=== PATIENT | female | born 1985 | race Caucasian/White ===

== ENCOUNTER 2017-05-28 17:43 | Emergency (ER) | payer BC, OTHER ==
[~2017-05-28] VITALS: Ht 157.5 cm; Wt 74.8 kg
== END 2017-05-28 20:34 | disposition home or self-care (01) ==
LOC: ED 17:43
DX: O20.9 Hemorrhage in early pregnancy, unspecified (principal); Z3A.15 15 weeks gestation of pregnancy; Z91.013 Allergy to seafood; Z79.899 Other long term (current) drug therapy
CPT/HCPCS: 76815; 86900; 86901; 99284

== ENCOUNTER 2017-11-23 12:41 | Inpatient (IN) | payer OTHER ==
--- OUTSIDE RECORDS SUMMARY | ~2017-11-23 | XMS | Clinical Summary ---
Demographics + + + | Address | [address] | | | [place] [address] | + + + | Home Phone | | + + + | Preferred Language | Unknown | + + + | Marital Status | | + + + | Sikh Affiliation | Unknown | + + + | Race | Unknown | + + + | Ethnic Group | Unknown | + + + Author + + + | Author | Merged With [facility] | | | and [place] | + + + | Organization | Merged With [facility] | | | and [place] | + + + | Address | Unknown | + + + | Phone | Unavailable | + + + Support + + +---------+ + | Name | Relationship | Address | Phone | + + +---------+ + | Mich Michele | ECON | Unknown | | + + +---------+ + | Joan Anand | ECON | Unknown | | + + +---------+ + Care Team Providers + +------+ + | Care Manager New Product Name | Role | Phone | + +------+ + | No Physician | PP | Unavailable | + +------+ + Allergies + + + + + + | Active Allergy | Reactions | Severity | Noted | Comments | | | | | Date | | + + + + + + | Shellfish-Derived | | | 04/18/20 | | | Products | | | 10 | | + + + + + + Current Medications No known medications Active Problems + + + | Problem | Noted Date | + + + | INGROWN TOENAIL | 01/02/2012 | + + + | MAXILLARY SINUSITIS | 09/08/2011 | + + + | SINUSITIS | 01/02/2011 | + + + | DYSFUNCTIONAL UTERINE BLEEDING | 10/17/2010 | + + + | ASTHMA | | + + + Social History + +-------+ +--------+ + | Tobacco Use | Types | Packs/Day | Years | Date | | | | | Used | | + +-------+ +--------+ + | Former Smoker | | | | Quit: 07/23/2004 | + +-------+ +--------+ + + +---+---+---+ | Smokeless Tobacco: | | | | | Never Used | | | | + +---+---+---+ + + +---------+ + | Alcohol Use | Drinks/We | oz/Week | Comments | | | ek | | | + + +---------+ + | Yes | | | Occasionally | + + +---------+ + + + + | Sex Assigned at | Date Recorded | | | | + + + | Not on file | | + + + Last Filed Vital Signs + + + + | Vital Sign | Reading | Time Taken | + + + + | Blood Pressure | 121/64 | 06/28/20161756 PST | + + + + | Pulse | 69 | 06/28/20161756 PST | + + + + | Temperature | 36.8 C (98.3 F) | 06/28/20161756 PST | + + + + | Respiratory Rate | 16 | 06/28/20161756 PST | + + + + | Oxygen Saturation | 100% | 06/28/20161756 PST | + + + + | Inhaled Oxygen | - | - | | Concentration | | | + + + + | Weight | 65.8 kg (145 lb) | 06/28/20161756 PST | + + + + | Height | 157.5 cm (5' 2") | 06/28/20161756 PST | + + + + | Body Mass Index | 26.52 | 06/28/20161756 PST | + + + + Plan of Treatment + + + + + | Health Maintenance | Due Date | Last Done | Comments | + + + + + | Vaccine: | | | | | Dtap/Tdap/Td (1 - | 6 | | | | Tdap) | | | | + + + + + | Vaccine: | | | | | Pneumococcal - | 6 | | | | (PPSV23 only) Medium | | | | | Risk (1 of 1 - | | | | | PPSV23) | | | | + + + + + | CERVICAL CANCER | | | | | SCREENING (PAP EVERY | 8 | | | | 3 YEARS - ) | | | | + + + + + | Vaccine: Influenza | | | | | (Season Ended) | 8 | | | + + + + + Results Not on filefrom Last 3 Months Insurance + +--------+ +------+ +---------+ | Payer | Benefi | Subscriber | Type | Phone | Address | | | t Plan | ID | | | | | | / | | | | | | | Group | | | | | + +--------+ +------+ +---------+ | [employer] | H[employer] | xxxxxxxxxxx | PPO | [phone] | | | ADMIN | [employer]BS | [phone] | [phone] | | | | PPO | | | | | + +--------+ +------+ +---------+ + +--------+ +--------+ + + | Guarantor Name | Accoun | Relation to | Date | Phone | Billing Address | | | t Type | Patient | of | | | | | | | | | | + +--------+ +--------+ + + | VIC MICHELE | Person | Self [birth year] Home: | [address] | | | trang/Timmy | | 1984 | [phone] [address] | | | kenneth | | [phone] | [place] [id number] | + +--------+ +--------+ + +
--- NOTE | 2017-11-24 12:05 | PR ---
[facility] [address] [place], [place] [address] Signed PP Progress Notes Datetime Report Generated by HAYDEN: 11/24/2017 12:05 SUBJECTIVE: [id number] Pain: Within normal limits Vital Signs: [id number] Vital Signs: Reviewed; Within Normal Limits EXAM: [id number] Cardiovascular: Not Done Respiratory: Not Done Abdomen/Uterus: Abnormal Lochia: Normal Vulva/Perineum: Not Done Breasts: Not Done CVA Tenderness: Not Done Extremities: Abnormal Incision: Not Applicable Progress: Abnormal Exam Comments: Fundus firm, NT @ U-1. Ext 1+ edema H/H 10.3/31.1, WBC 11.6, plat 125k IMPRESSION/PLAN/PROCEDURES: [id number] Impression: Normal progression Other Impression: Desires D/C Plan: Discharge Procedures: None Progress Notes: Doing well. She would like D/C to boarder status. Signing Physician: Christen Melendez MD Copies: ~ *Electronically Signed* 11/24/17 1205 CHRISTEN MELENDEZ MD PATIENT NAME: CHEKO MICHELE PROGRESS NOTE DATE OF : 89 PHYSICIAN: CHRISTEN MELENDEZ MD RPT #: [id number] REPORT IS CONFIDENTIAL AND NOT TO BE RELEASED WITHOUT AUTHORIZATION
== END 2017-11-24 13:00 | disposition home or self-care (01) | DRG 775 ==
LOC: FBCO 12:41 → FBC 12:50 → FBCO 11-25 13:29
PROVIDERS: ADMIT Obstetrics & Gynecology
PROC: 10E0XZZ Delivery of Products of Conception, External Approach (ICD-10-PCS; principal; 2017-11-23)
PROC: 0KQM0ZZ Repair Perineum Muscle, Open Approach (ICD-10-PCS; 2017-11-23)
DX: O42.92 Full-term premature rupture of membranes, unspecified as to length of time between rupture and onset of labor (principal); O99.824 Streptococcus B carrier state complicating childbirth; O70.1 Second degree perineal laceration during delivery; O99.214 Obesity complicating childbirth; E66.9 Obesity, unspecified; Z68.29 Body mass index [BMI] 29.0-29.9, adult; Z33.3 Pregnant state, gestational carrier; Z87.42 Personal history of other diseases of the female genital tract; Z3A.39 39 weeks gestation of pregnancy; Z37.0 Single live birth
CPT/HCPCS: 36415; 85027; J2540; J2590; J7120

== ENCOUNTER 2022-04-12 06:50 | Day surgery (SDC) | payer OTHER ==
[~2022-04-12] VITALS: Ht 157.5 cm; Wt 83.2 kg
--- NOTE | ~2022-04-12 | OR ---
[facility] [address] [place], [place] [address] [address] DATE OF OPERATION: 04/12/2022 SURGEON: Christen Melendez MD PREOPERATIVE DIAGNOSIS: Embedded intrauterine device. POSTOPERATIVE DIAGNOSIS: Embedded intrauterine device. PROCEDURES: 1. Dilation of cervix. 2. Removal of embedded intrauterine device. ANESTHESIA: MAC. ESTIMATED BLOOD LOSS: Minimal. DRAINS: None. INDICATIONS AND FINDINGS: The patient is a 36-year-old female, who [facility] and has had continued to have abnormal bleeding and pain. IUD strings were not visible. Ultrasound did show that the IUD was within the uterus. She declined any attempt of removal in the office. At the time of surgery, exam under anesthesia revealed a normal-sized uterus. No adnexal masses. The IUD strings were not visible. The IUD was easily removed. DESCRIPTION OF PROCEDURE: The patient was prepped and draped in the dorsal lithotomy position. An open-sided speculum was placed and the anterior lip of the cervix visualized and grasped with a single-tooth tenaculum. The endocervical canal was then dilated to a #[address] forceps were introduced and the IUD removed intact easily. Following this, the tenaculum was removed. There was no evidence of any ongoing bleeding. The speculum was removed and the procedure completed. All sponge and needle counts were correct. She was taken to the recovery room in good condition. PATIENT NAME: CHEKO MICHELE OPERATIVE REPORT DATE OF : 89 REPORT #: [id number] PHYSICIAN: CHRISTEN MELENDEZ MD PCP: NO PRIMARY CARE PHYSICIAN REPORT IS CONFIDENTIAL AND NOT TO BE RELEASED WITHOUT AUTHORIZATION [address] [address] [place] MD VISHNU Shaw/CLAUDY /[id number] Copies: ~ PATIENT NAME: CHEKO MICHELE OPERATIVE REPORT DATE OF : 89 REPORT #: [id number] PHYSICIAN: CHRISTEN MELENDEZ MD PCP: NO PRIMARY CARE PHYSICIAN REPORT IS CONFIDENTIAL AND NOT TO BE RELEASED WITHOUT AUTHORIZATION
--- NOTE | 2022-04-12 09:53 | NUR ---
04/12/22 0953 Kacie Ashraf 0946-PATIENT ARRIVED TO PACU ON RA RR EVEN REACTIVE TO VERBAL STIMULI MUMBLES "VERY TIRED" PATIENT ENCOURAGED TO SLEEP. SR. IVF INFUSING. CHANA PAD IN PLACE CDI. 0950-PATIENT SLEEPING AROUSES SELF RA 99% RR EVEN VERY SLEEPING GIVES THUMBS UP WHEN ASKED IF COMFORTABLE. DOZES BACK TO SLEEP.
[2022-04-12] MEDS ORDERED: HYDROCODON-ACE1 EA10 PO (10:15)
[2022-04-12] MEDS ORDERED: MOTRIN IB200 MG PO (10:16)
--- NOTE | 2022-04-12 10:21 | NUR ---
PT ALERT, ORIENTED AND WAITING FOR RN CORNELIO TO BEGIN PREP. PT SEEMS INFORMED, CALM AND ALL QUESTIONS ASKED ANSWERED.GAVE BLESSING, PT'S SISTER WILL BE HERE AT DC
== END 2022-04-12 10:32 | disposition home or self-care (01) ==
LOC: DS 06:50
PROVIDERS: ATTEND Obstetrics & Gynecology
PROC: 0UPD7HZ Removal of Contraceptive Device from Uterus and Cervix, Via Natural or Artificial Opening (ICD-10-PCS; principal; 2022-04-12 10:45)
DX: T83.32XA Displacement of intrauterine contraceptive device, initial encounter (principal); Z91.013 Allergy to seafood; E66.9 Obesity, unspecified; Z86.16 Personal history of COVID-19; Z68.30 Body mass index [BMI] 30.0-30.9, adult
CPT/HCPCS: J1885; J2001; J2704; J2765; J3010

== ENCOUNTER 2024-04-26 20:28 | Emergency (ER) | payer OTHER ==
[~2024-04-26] VITALS: Ht 157.5 cm; Wt 85.6 kg
[~2024-04-26 20:28] MED LIST: HYDROCODON-ACE1 EA10 PO; MOTRIN IB200 MG PO
[2024-04-26] MEDS ORDERED: PRENATAL MULTI1 EAC5 PO (20:45)
[2024-04-26 21:35] LABS: BASOPHILS 0.6 % (0-2); EOSINOPHILS 1.4 % (0-6); HEMATOCRIT 36.6 % (35.0-50.0); HEMOGLOBIN 12.2 g/dL (12.0-18.0); LYMPHOCYTES 26.9 % (24-44); MCH 27.9 (27-36); MCHC 33.3 g/dl (30-36); MCV 83.6 fl (81-99); MONOCYTES 7.2 % (0-12); NEUTROPHILS 63.9 % (39-80); PLATELET COUNT 164 K/uL (140-440); RBC 4.38 M/ul (4.3-5.7); RDW 14.4 (10.5-15.0)
[2024-04-26 21:57] LABS: ABO O; RH POSITIVE
[2024-04-26 22:10] LABS: ALBUMIN 3.5 g/dL (3.4-5.0); ALBUMIN/GLOBULIN RATIO 1.03 (1.1-2.4); ANION GAP 11.2 (7-21); BILIRUBIN, TOTAL 0.2 ng/dL (0.2-1.0); BUN/CREATININE RATIO 13.04 (6.0-28.6); CREATININE, SERUM 0.92 mg/dL (0.55-1.02); POTASSIUM 3.2 mmol/L (3.5-5.1); PROTEIN, TOTAL 6.9 g/dL (6.4-8.2)
[2024-04-26 23:19] VITALS: BP 124/60
== END 2024-04-26 23:19 | disposition home or self-care (01) ==
LOC: ED 20:28
PROVIDERS: Emergency Medicine
DX: O20.0 Threatened abortion (principal); Z3A.01 Less than 8 weeks gestation of pregnancy; Z91.013 Allergy to seafood
CPT/HCPCS: 36415; 76801; 76817; 80053; 84702; 85025; 86900; 86901; 99284

== ENCOUNTER 2024-07-07 19:17 | Emergency (ER) | payer OTHER ==
[~2024-07-07] VITALS: Ht 157.5 cm; Wt 87.8 kg
[~2024-07-07 19:17] MED LIST changes: +PRENATAL MULTI1 EAC5 PO
[2024-07-07] MEDS ORDERED: SODIUM CHLORIDE 0.9% 500 ML IV PRN (20:15)
[2024-07-07 20:31] LABS: BILIRUBIN, URINE NEGATIVE (negative); BLOOD/HGB, URINE NEGATIVE (Negative); KETONE, URINE NEGATIVE (Negative); LEUK ESTERASE, URINE NEGATIVE (negative); NITRITE, URINE NEGATIVE (negative)
[2024-07-07 20:45] LABS: BASOPHILS 0.5 % (0-2); EOSINOPHILS 1.5 % (0-6); HEMATOCRIT 33.6 % (35.0-50.0); HEMOGLOBIN 11.6 g/dL (12.0-18.0); MCH 29.7 (27-36); MCHC 34.5 g/dl (30-36); MCV 85.9 fl (81-99); MONOCYTES 4.6 % (0-12); NEUTROPHILS 72.4 % (39-80); PLATELET COUNT 180 K/uL (140-440); RBC 3.91 M/ul (4.3-5.7); RDW 15.8 (10.5-15.0)
[2024-07-07 21:07] LABS: ALBUMIN 2.9 g/dL (3.4-5.0); ALBUMIN/GLOBULIN RATIO 0.78 (1.1-2.4); ANION GAP 15.5 (7-21); BILIRUBIN, TOTAL 0.3 ng/dL (0.2-1.0); BUN/CREATININE RATIO 12.32 (6.0-28.6); CALCIUM 8.5 mg/dL (8.5-10.1); CREATININE, SERUM 0.73 mg/dL (0.55-1.02); MAGNESIUM 1.7 mg/dL (1.8-2.4); POTASSIUM 3.5 mmol/L (3.5-5.1); PROTEIN, TOTAL 6.6 g/dL (6.4-8.2)
[2024-07-07] MEDS ORDERED: LIDODERM1 EACH TOP (22:35)
[2024-07-07] MEDS ORDERED: MAGNESIUM OXIDE 400 MG TABLET PO ONE (22:45)
[2024-07-07] MEDS ORDERED: LIDOCAINE HCL 4% 1 EACH PATCH TD ONE (22:45)
[2024-07-07 22:55] VITALS: BP 117/65
== END 2024-07-07 22:59 | disposition home or self-care (01) ==
LOC: ED 19:17
PROVIDERS: Family Medicine
DX: O99.891 Other specified diseases and conditions complicating pregnancy (principal); R10.12 Left upper quadrant pain; Z3A.18 18 weeks gestation of pregnancy; Z91.013 Allergy to seafood
CPT/HCPCS: 36415; 76815; 80053; 81003; 83735; 85025; 99284; A9270

== ENCOUNTER 2024-10-08 19:35 | Emergency (ER) | payer OTHER ==
[~2024-10-08] VITALS: Ht 157.5 cm; Wt 93.9 kg
[~2024-10-08 19:35] MED LIST changes: +LIDODERM1 EACH TOP
[2024-10-08] MEDS ORDERED: FEROSUL325 MG (20:22)
[2024-10-08 22:11] LABS: BASOPHILS 0.3 % (0-2); EOSINOPHILS 1.5 % (0-6); HEMATOCRIT 32.5 % (35.0-50.0); HEMOGLOBIN 10.9 g/dL (12.0-18.0); LYMPHOCYTES 17.7 % (24-44); MCH 28.6 (27-36); MCHC 33.5 g/dl (30-36); MCV 85.4 fl (81-99); MONOCYTES 6.1 % (0-12); NEUTROPHILS 74.4 % (39-80); PLATELET COUNT 161 K/uL (140-440); RBC 3.81 M/ul (4.3-5.7); RDW 14.5 (10.5-15.0)
[2024-10-08 22:26] LABS: ALBUMIN 2.5 g/dL (3.4-5.0); ALBUMIN/GLOBULIN RATIO 0.69 (1.1-2.4); ANION GAP 10.5 (7-21); BILIRUBIN, TOTAL 0.2 mg/dL (0.2-1.0); BUN/CREATININE RATIO 8.19 (6.0-28.6); CREATININE, SERUM 0.61 mg/dL (0.55-1.02); MAGNESIUM 1.8 mg/dL (1.8-2.4); POTASSIUM 3.5 mmol/L (3.5-5.1); PROTEIN, TOTAL 6.1 g/dL (6.4-8.2)
[2024-10-08 22:59] VITALS: BP 153/76
== END 2024-10-08 23:00 | disposition home or self-care (01) ==
LOC: ED 19:35
PROVIDERS: Internal Medicine
DX: O09.93 Supervision of high risk pregnancy, unspecified, third trimester (principal); O9A.213 Injury, poisoning and certain other consequences of external causes complicating pregnancy, third trimester; S86.911A Strain of unspecified muscle(s) and tendon(s) at lower leg level, right leg, initial encounter; X58.XXXA Exposure to other specified factors, initial encounter; Z91.013 Allergy to seafood; Z3A.30 30 weeks gestation of pregnancy
CPT/HCPCS: 36415; 80053; 83735; 85025; 93971; 99284-25

== ENCOUNTER 2025-03-26 17:23 | Emergency (ER) | payer OTHER ==
[~2025-03-26] VITALS: Ht 157.5 cm; Wt 94.3 kg
[~2025-03-26 17:23] MED LIST changes: +FEROSUL325 MG
[2025-03-26 18:54] VITALS: BP 138/94
== END 2025-03-26 18:54 | disposition home or self-care (01) ==
LOC: ED 17:23
DX: S90.31XA Contusion of right foot, initial encounter (principal); Z91.013 Allergy to seafood; Z79.899 Other long term (current) drug therapy; W55.12XA Struck by horse, initial encounter
CPT/HCPCS: 73630; 99283